=== PATIENT | male | born 1975 | race Native Hawaiian/Other Pacific Islander ===

== ENCOUNTER 2017-08-02 05:18 | Emergency (ER) | payer BC ==
[~2017-08-02] VITALS: Ht 172.7 cm; Wt 105.2 kg
[~2017-08-02 05:18] MED LIST: BUPROPN HCL300 MG PO; CETI10TA PO; GABA300C2 PO; LISI10TA11 PO; LISI20TA11 PO; METO25TA4 PO; POTA20TA4 PO; TESTOST ENA200 MG/ML IM; WELCHOL625 MG PO
[2017-08-02 08:09] LABS: PLATELET COUNT 224 K/uL (142-355)
[2017-08-02 08:24] VITALS: BP 140/95; TEMP 97.2
== END 2017-08-02 08:28 | disposition short-term general hospital (02) ==
LOC: ED 05:18
PROVIDERS: Specialist
DX: S22.089A Unspecified fracture of T11-T12 vertebra, initial encounter for closed fracture (principal); S32.019A Unspecified fracture of first lumbar vertebra, initial encounter for closed fracture; V89.0XXA Person injured in unspecified motor-vehicle accident, nontraffic, initial encounter
CPT/HCPCS: 81000; 82150; 82550; 83690; 84484; 85027; 96365; 96375; 99285; J1170; J2405

== ENCOUNTER 2017-08-02 08:20 | Outpatient (CLI) | payer BC | END 2017-08-02 08:30 | disposition short-term general hospital (02) | LOC: AMB 08:20 | DX: S22.089A Unspecified fracture of T11-T12 vertebra, initial encounter for closed fracture (principal); S32.019A Unspecified fracture of first lumbar vertebra, initial encounter for closed fracture; V89.0XXA Person injured in unspecified motor-vehicle accident, nontraffic, initial encounter | CPT/HCPCS: A0425; A0429 ==

== ENCOUNTER 2017-08-28 15:32 | Outpatient (CLI) | payer BC | END 2017-08-28 23:39 | disposition home or self-care (01) | LOC: RAD 15:32 | DX: S22.080D Wedge compression fracture of T11-T12 vertebra, subsequent encounter for fracture with routine healing (principal) ==